=== PATIENT | female | born 1975 | race American Indian/Alaskan Native ===

== ENCOUNTER 2018-12-19 19:45 | Inpatient (IN) | payer SELFPAY ==
[2018-12-19] MEDS ORDERED: MECLIZINE 25 MG TAB PO ONE (20:28)
--- NOTE | 2018-12-19 20:31 | Emergency Department Report ---
ED General Adult HPI - General Chief complaint: Dizziness Stated complaint: DIZZINESS, HYPERTENSION Time Seen by Provider: 12/19/18 19:55 Source: patient Mode of arrival: Stretcher Limitations: No Limitations - History of Present Illness Initial comments: The patient presents to the emergency department with the chief complaint of dizziness 2 weeks. Patient states that the dizziness is present when she stands quickly or if she turns her head quickly. Patient also was this with a blood pressure that is 176/105. Patient states she was just released from prison and does not have her medications. Patient states that she takes labetalol and at that opinion for her hypertension but is unaware of the dosages. Patient denies chest pain, shortness of breath, headache, or abdominal pain. -: Gradual Severity scale (0 -10): 0 Improves with: none Worsens with: none Associated Symptoms: denies other symptoms Treatments Prior to Arrival: none - Related Data Allergies Allergy/AdvReac Type Severity Reaction Status Date / Time No Known Allergies Allergy Unverified 12/19/18 20:01 ED Review of Systems ROS: Stated complaint: DIZZINESS, HYPERTENSION Other details as noted in HPI Comment: All other systems reviewed and negative Constitutional: denies: chills, fever Eyes: denies: eye pain, eye discharge, vision change ENT: denies: ear pain, throat pain Respiratory: denies: cough, shortness of breath, wheezing Cardiovascular: denies: chest pain, palpitations Endocrine: no symptoms reported Gastrointestinal: denies: abdominal pain, nausea, diarrhea Genitourinary: denies: urgency, dysuria, discharge Musculoskeletal: denies: back pain, joint swelling, arthralgia Skin: denies: rash, lesions Neurological: vertigo. denies: headache, weakness, paresthesias Psychiatric: denies: anxiety, depression Hematological/Lymphatic: denies: easy bleeding, easy bruising ED Past Medical Hx - Past Medical History Previous Medical History?: Yes Hx Hypertension: Yes Hx CVA: Yes Hx Diabetes: Yes Hx Asthma: Yes - Surgical History Past Surgical History?: No - Social History Smoking Status: Never Smoker ED Physical Exam - General Limitations: No Limitations General appearance: alert, in no apparent distress - Head Head exam: Present: atraumatic, normocephalic - Eye Eye exam: Present: normal appearance, PERRL, EOMI - ENT ENT exam: Present: mucous membranes moist - Neck Neck exam: Present: normal inspection - Respiratory Respiratory exam: Present: normal lung sounds bilaterally. Absent: respiratory distress - Cardiovascular Cardiovascular Exam: Present: regular rate, normal rhythm. Absent: systolic murmur, diastolic murmur, rubs, gallop - GI/Abdominal GI/Abdominal exam: Present: soft, normal bowel sounds. Absent: distended, tenderness - Extremities Exam Extremities exam: Present: normal inspection - Back Exam Back exam: Present: normal inspection - Neurological Exam Neurological exam: Present: alert, oriented X3, CN II-XII intact, abnormal gait, other (FTN, HTS and RHM intact). Absent: motor sensory deficit - Psychiatric Psychiatric exam: Present: normal affect, normal mood - Skin Skin exam: Present: warm, dry, intact, normal color. Absent: rash ED Course Vital Signs 12/19/18 12/19/18 20:01 21:42 Temperature 98.6 F Pulse Rate 65 62 Respiratory 18 18 Rate Blood Pressure 176/105 Blood Pressure 183/97 [Right] O2 Sat by Pulse 99 99 Oximetry ED Medical Decision Making - Lab Data Result diagrams: 12/19/18 21:40 12/19/18 21:40 Lab Results 12/19/18 12/19/18 Range/Units 21:40 21:40 WBC 8.4 (4.5-11.0) K/mm3 RBC 4.42 (3.65-5.03) M/mm3 Hgb 13.0 (10.1-14.3) gm/dl Hct 38.0 (30.3-42.9) % MCV 86 (79-97) fl MCH 29 (28-32) pg MCHC 34 (30-34) % RDW 15.1 (13.2-15.2) % Plt Count 381 (140-440) K/mm3 Lymph % (Auto) 34.3 (13.4-35.0) % [place] % (Auto) 4.9 (0.0-7.3) % Eos % (Auto) 1.0 (0.0-4.3) % Baso % (Auto) 0.9 (0.0-1.8) % Lymph # 2.9 (1.2-5.4) K/mm3 [place] # 0.4 (0.0-0.8) K/mm3 Eos # 0.1 (0.0-0.4) K/mm3 Baso # 0.1 (0.0-0.1) K/mm3 Seg Neutrophils % 58.9 (40.0-70.0) % Seg Neutrophils # 5.0 (1.8-7.7) K/mm3 Sodium 141 (137-145) mmol/L Potassium 3.2 L (3.6-5.0) mmol/L Chloride 103.0 (98-107) mmol/L Carbon Dioxide 29 (22-30) mmol/L Anion Gap 12 mmol/L BUN 9 (7-17) mg/dL Creatinine 0.6 L (0.7-1.2) mg/dL Estimated GFR > 60 ml/min BUN/Creatinine Ratio 15 % Glucose 118 H (65-100) mg/dL Calcium 9.0 (8.4-10.2) mg/dL Critical care attestation.: If time is entered above; I have spent that time in minutes in the direct care of this critically ill patient, excluding procedure time. ED Disposition Clinical Impression: Ataxia, Dizziness Disposition: DC-01 TO HOME OR SELFCARE Is pt being admited?: No Does the pt Need Aspirin: No Condition: Fair
[2018-12-19 21:54] LABS: Basophils # (Auto) 0.1 K/mm3 (0.0-0.1); Basophils % (Auto) 0.9 % (0.0-1.8); Eosinophils # (Auto) 0.1 K/mm3 (0.0-0.4); Lymphocytes # (Auto) 2.9 K/mm3 (1.2-5.4); Lymphocytes % (Auto) 34.3 % (13.4-35.0); Mean Corpuscular HGB Conc 34 % (30-34); Mean Corpuscular Volume 86 fl (79-97); Monocytes # (Auto) 0.4 K/mm3 (0.0-0.8); Monocytes % (Auto) 4.9 % (0.0-7.3); Platelet Count 381 K/mm3 (140-440); Red Blood Count 4.42 M/mm3 (3.65-5.03); Red Cell Distribution Width 15.1 % (13.2-15.2)
--- NOTE | 2018-12-19 22:01 | Cat Scan Report ---
CT BRAIN: 12/19/2018 INDICATION / CLINICAL INFORMATION: dizzy. COMPARISON: None available. FINDINGS: BRAIN/INTRACRANIAL STRUCTURES: Unenhanced CT images of the brain were obtained. No previous studies a re available here for comparison. There is a 3.1 cm area of hypoattenuation/encephalomalacia present in the peripheral aspect of the le ft cerebellar hemisphere, most consistent with ischemic injury. I would consider this to be of indete rminate age. There is no evidence of associated hemorrhage. A small area of encephalomalacia is present in the high right frontal cortex There is subcortical periventricular hypoattenuation in the right frontal lobe, consistent with chron ic ischemic change. There is also evidence of chronic ischemic change in the left thalamus. Ventricles and sulci are slightly prominent in size for a patient of this age, consistent with mild c erebral atrophy. There is no evidence of hemorrhage. There are no abnormal extra-axial fluid collections. EXTRACRANIAL STRUCTURES: Unremarkable. IMPRESSION: 1. Left peripheral cerebellar encephalomalacia, consistent with ischemic injury. Consider this to be of indeterminate age. The lack of defined atrophic changes may indicate that this is a recent cerebel lar infarct. 2. Chronic ischemic changes in the left thalamus and right frontal white matter. High right frontal c ortical encephalomalacia is also present. 3. No evidence of hemorrhage. All CT scans at this location are performed using dose reduction to ALARA by means of automated expos ure control. Signer Name: Santiago Banuelos MD Signed: 12/19/2018 9:56 PM Workstation Name: [id number]
[2018-12-19 22:12] LABS: BUN/Creatinine Ratio 15; Blood Urea Nitrogen 9 mg/dL (7-17); Hemolysis Index 3
[2018-12-19] MEDS ORDERED: ASPIRIN 81 MG TAB CHEW PO ONE (22:55)
[2018-12-19] MEDS ORDERED: ASPIRIN 81 MG TAB CHEW ONE (22:56)
[2018-12-19] MEDS ORDERED: PROMETHAZINE 25 MG RECT SUPP PR PRN (23:12)
[2018-12-19] MEDS ORDERED: ONDANSETRON 4 MG/2 ML INJ IV PRN (23:12)
[2018-12-19] MEDS ORDERED: ACETAMINOPHEN 325 MG TAB PO PRN (23:12)
[2018-12-19] MEDS ORDERED: MAGNESIUM HYDROXIDE (MOM) ORAL LIQD UDC PO PRN (23:12)
[2018-12-19] MEDS ORDERED: METOCLOPRAMIDE 10 MG TAB PO PRN (23:12)
[2018-12-19] MEDS ORDERED: POTASSIUM CHLORIDE ER 20 MEQ TAB PO ONE (23:19)
--- NOTE | 2018-12-19 23:25 | History and Physical Report ---
History of Present Illness Date of examination: 12/19/18 Date of admission: 12/19/2018 Chief complaint: Dizziness History of present illness: 43-year-old -Marshallese female with history of CVA (2018), hypertension, asthma, diabetes who presents to [facility] ED with complaints of dizziness and ataxia for the past 2 weeks. Patient states that she was incarcerated for the past 8 months and was recently released 3 weeks ago. Since being released from long-term, patient has been off of her blood pressure and stroke medications. Approximately 2 weeks ago patient started experiencing dizziness which was worse after meal consumption. Patient states that baseline she has slight ataxia from previous CVA. However she has noticed that her is more altered than usual. Denies: CP, Headache, alteration in speech, visual disturbances, fever, cough, nausea, or vomiting Past History Past Medical History: diabetes, hypertension, stroke (2018), other (asthma) Past Surgical History: No surgical history Social history: lives with family (with sister), other (incarcerated for an 8 months released 3 weeks ago). denies: smoking Family history: no significant family history Medications and Allergies Allergies Allergy/AdvReac Type Severity Reaction Status Date / Time No Known Allergies Allergy Unverified 12/19/18 20:01 Home Medications Medication Instructions Recorded Confirmed Last Taken Type Labetalol [Labetalol 100mg TAB] 100 mg PO BID 12/19/18 12/19/18 Unknown History NIFEdipine [Procardia] 10 mg PO DAILY 12/19/18 12/19/18 Unknown History OLANzapine [ZyPREXA] 5 mg PO QDAY 12/19/18 12/19/18 Unknown History Active Meds: Active Medications Acetaminophen (Tylenol) 650 mg PO Q4H PRN PRN Reason: Pain, Mild (1-3) Aspirin (Aspirin) 325 mg PO QDAY JULIA Atorvastatin Calcium (Lipitor) 40 mg PO QHS JULIA Bisacodyl (Dulcolax) 10 mg PA QDAY PRN PRN Reason: Constipation Enoxaparin Sodium (Lovenox) 40 mg SUB-Q QDAY JULIA Labetalol HCl (Normodyne) 100 mg PO BID JULIA Magnesium Hydroxide (Milk Of Magnesia) 30 ml PO Q4H PRN PRN Reason: Constipation Metoclopramide HCl (Reglan) 10 mg PO Q6H PRN PRN Reason: Nausea And Vomiting Nifedipine (Procardia*For Tocolysis Only*) 10 mg PO DAILY [facility] Olanzapine (Zyprexa) 5 mg PO QDAY JULIA Ondansetron HCl (Zofran) 4 mg IV Q8H PRN PRN Reason: Nausea And Vomiting Potassium Chloride (K-Dur) 40 meq PO ONCE ONE Stop: 12/19/18 23:20 Promethazine HCl (Phenergan) 25 mg PA Q6H PRN PRN Reason: Nausea And Vomiting Sodium Chloride (Sodium Chloride Flush Syringe 10 Ml) 10 ml INJ PRN PRN PRN Reason: LINE FLUSH Review of Systems All systems: negative Neurological: ataxia, gait dysfunction (r/t previous stoke), other (dizziness) Exam - Physical Exam Narrative exam: Physical exam General appearance: Present: No acute distress, alert and oriented 3, well developed, pleasant, adult -Marshallese female - EENT Eyes: Present: PERRL, EOM intact, ENT: hearing intact, normal dentition - Neck Neck: Present: supple, normal ROM - Respiratory Respiratory effort: Non-labored Respiratory: CTA - Cardiovascular Heart rate: 65 (bpm) Rhythm: SR Heart Sounds: Present: S1, S2 - Extremities Extremities: no ischemia, pulses intact, - Peripheral Assessment Peripheral Pulses: within normal limits - Abdominal General gastrointestinal: soft, non-tender, normal bowel sounds - Integumentary Integumentary: Present: warm, dry, - Musculoskeletal Musculoskeletal: Able to move all extremities, 5/5 strength in extremities x4, -Neurological Neurological: CN II-XII grossly intact - Psychiatric Psychiatric: cooperative - Constitutional Vitals: Temp Pulse Resp BP Pulse Ox 98.6 F 75 18 159/89 100 12/19/18 20:01 12/19/18 23:23 12/19/18 23:23 12/19/18 23:23 12/19/18 23:23 Results - Labs CBC & Chem 7: 12/19/18 21:40 12/19/18 21:40 Labs: Laboratory Last Values WBC 8.4 K/mm3 (4.5-11.0) 12/19/18 21:40 RBC 4.42 M/mm3 (3.65-5.03) 12/19/18 21:40 Hgb 13.0 gm/dl (10.1-14.3) 12/19/18 21:40 Hct 38.0 % (30.3-42.9) 12/19/18 21:40 MCV 86 fl (79-97) 12/19/18 21:40 MCH 29 pg (28-32) 12/19/18 21:40 MCHC 34 % (30-34) 12/19/18 21:40 RDW 15.1 % (13.2-15.2) 12/19/18 21:40 Plt Count 381 K/mm3 (140-440) 12/19/18 21:40 Lymph % (Auto) 34.3 % (13.4-35.0) 12/19/18 21:40 [place] % (Auto) 4.9 % (0.0-7.3) 12/19/18 21:40 Eos % (Auto) 1.0 % (0.0-4.3) 12/19/18 21:40 Baso % (Auto) 0.9 % (0.0-1.8) 12/19/18 21:40 Lymph # 2.9 K/mm3 (1.2-5.4) 12/19/18 21:40 [place] # 0.4 K/mm3 (0.0-0.8) 12/19/18 21:40 Eos # 0.1 K/mm3 (0.0-0.4) 12/19/18 21:40 Baso # 0.1 K/mm3 (0.0-0.1) 12/19/18 21:40 Seg Neutrophils % 58.9 % (40.0-70.0) 12/19/18 21:40 Seg Neutrophils # 5.0 K/mm3 (1.8-7.7) 12/19/18 21:40 Sodium 141 mmol/L (137-145) 12/19/18 21:40 Potassium 3.2 mmol/L (3.6-5.0) L 12/19/18 21:40 Chloride 103.0 mmol/L (98-107) 12/19/18 21:40 Carbon Dioxide 29 mmol/L (22-30) 12/19/18 21:40 Anion Gap 12 mmol/L 12/19/18 21:40 BUN 9 mg/dL (7-17) 12/19/18 21:40 Creatinine 0.6 mg/dL (0.7-1.2) L 12/19/18 21:40 Estimated GFR > 60 ml/min 12/19/18 21:40 BUN/Creatinine Ratio 15 % 12/19/18 21:40 Glucose 118 mg/dL (65-100) H 12/19/18 21:40 Calcium 9.0 mg/dL (8.4-10.2) 12/19/18 21:40 - Imaging and Cardiology Imaging and Cardiology: CT Head: FINDINGS: BRAIN/INTRACRANIAL STRUCTURES: Unenhanced CT images of the brain were obtained. No previous studies are available here for comparison. There is a 3.1 cm area of hypoattenuation/encephalomalacia present in the peripheral aspect of the left cerebellar hemisphere, most consistent with ischemic injury. I would consider this to be of indeterminate age. There is no evidence of associated hemorrhage. A small area of encephalomalacia is present in the high right frontal cortex There is subcortical periventricular hypoattenuation in the right frontal lobe, consistent with chronic ischemic change. There is also evidence of chronic ischemic change in the left thalamus. Ventricles and sulci are slightly prominent in size for a patient of this age, consistent with mild cerebral atrophy. There is no evidence of hemorrhage. There are no abnormal extra-axial fluid luis ections. EXTRACRANIAL STRUCTURES: Unremarkable. IMPRESSION: 1. Left peripheral cerebellar encephalomalacia, consistent with ischemic injury. Consider this to be of indeterminate age. The lack of defined atrophic changes may indicate that this is a recent cerebellar infarct. 2. Chronic ischemic changes in the left thalamus and right frontal white matter. High right frontal cortical encephalomalacia is also present. 3. No evidence of hemorrhage. Assessment and Plan Assessment and plan: 43-year-old -M[place]ese female with history of CVA (2018), hypertension, asthma, diabetes who presents to [facility] ED with complaints of dizziness and ataxia for the past 2 weeks. At the time of my examination patient is sitting up in stretcher awake, alert and oriented 3. Speech is clear and she is able to maintain conversation. Hypertensive urgency -BP on admission 176/105 -Hx Hypertension -Continue to monitor BP -Has been off of antihypertensive meds for the past 3 weeks since being released from long-term -Resume home antihypertensive meds to optimize BP -IV antihypertensive when necessary R/O CVA -Suspicion of TIA -Hx CVA (2018) with right sided residual deficits -Pt c/o progressing worsening dizziness for the past 2 weeks -CT Head negative for hemorrhage, but did reveal: Left peripheral cerebellar encephalomalacia, consistent with ischemic injury. Consider this to be of indeterminate age. The lack of defined atrophic changes may indicate that this is a recent cerebellar infarct. Chronic ischemic changes in the left thalamus and right frontal white matter. High right frontal cortical en cephalomalacia is also present. -Pt not a candidate for TPA -MRI/MRA, Carotid Doppler, and Echo pending -Neurology consulted -Neuro Checks -PT/OT eval pending -Lipid panel pending -Start ASA and statin Hypokalemia -3.2 on admission -Repleted -Continue to monitor electrolytes, replete prn DM -HgbA1c pending -SSI coverage prn DVT PPX -on Lovenox Advance Directives: No VTE prophylaxis?: Chemical Plan of care discussed with patient/family: Yes
[2018-12-19] MEDS ORDERED: hydrALAZINE 20 MG/1 ML INJ IV PRN (23:45)
--- NOTE | 2018-12-19 23:45 | Event Note ---
43-year-old woman with history of stroke 1 year ago. The patient had been in [place] [facility] she was receiving her medications which included blood pressure medications, aspirin etc. She was recently released 2 weeks ago. And had no access to medications or prescriptions, therefore has been off all her medications since then. She typically takes labetalol and nifedipine for blood pressure management, she was also on a statin and aspirin. She has been complaining of dizziness and feeling that she is falling to her left side when she stands or tries to walk CT HEAD 1. Left peripheral cerebellar encephalomalacia, consistent with ischemic injury. Consider this to be of indeterminate age. The lack of defined atrophic changes may indicate that this is a recentcerebellar infarct. 2. Chronic ischemic changes in the left thalamus and right frontal white matter. High right frontalcortical encephalomalacia is also present. 3. No evidence of hemorrhage. Physical exam, patient has ataxic gait, leaning/falling to the left Hypertensive urgency; optimize blood pressure medications Age-indeterminate cerebellar stroke. It is unclear if this is a new or old stroke. However the symptoms have been going on for over 2 weeks, therefore the patient does not meet criteria for TPA or any acute management. Will need to obtain MRI brain MRA head, carotid Dopplers echo, lipid panel, neurology consult, PT consult. Based on this findings we will determine secondary prevention. -Aspirin, statin DVT prophylaxis; Lovenox
[2018-12-20] MEDS ORDERED: DEXTROSE 50% IN WATER (25GM) 50 ML SYRINGE IV PRN (00:40)
[2018-12-20 06:06] LABS: Chol/HDL Ratio 2.92 %
[2018-12-20] MEDS: INSULIN LISPRO 100 UNIT/ML SUB-Q SCH ×4 (07:58→22:19)
[2018-12-20] MEDS ORDERED: NIFEdipine*For Tocolysis only* 10 MG CAPSULE PO SCH (10:00)
[2018-12-20] MEDS ORDERED: ASPIRIN 325 MG TAB PO SCH (10:00)
--- NOTE | 2018-12-20 10:39 | Vascular Lab Report ---
BILATERAL CAROTID DOPPLER ULTRASOUND INDICATION : stroke TECHNIQUE: Grayscale and color Doppler imaging performed through the neck. COMPARISON: None FINDINGS: Right: There is minimal heterogeneous plaque in the carotid bulb. Peak systolic velocity in the CCA is 86 cm/s with end-diastolic velocity of 82 cm/s. Peak systolic velocity in the proximal ICA is 105 cm/s with end-diastolic velocity of 32 cm/s. ICA to CCA ratio is less than 2. There is antegrade fl ow in the ECA and the vertebral artery. Left: There is mild heterogeneous irregular plaque in the carotid bulb. Peak systolic velocity in the CCA is 98 cm/s with end-diastolic velocity of 31 cm/s. Peak systolic velocity in the proximal ICA is 101 cm/s with end-diastolic velocity of 46 cm/s. ICA to CCA ratio is less than 2. There is antegrade flow in the ECA and the vertebral artery. IMPRESSION: No hemodynamically significant stenosis by NASCET criteria. There is less than 50% lumina l narrowing throughout both carotid systems. Minimal to mild atherosclerotic disease at both carotid bifurcations. Signer Name: Rashel Christine Jr, MD Signed: 12/20/2018 10:34 AM Workstation Name: [id number]
[2018-12-20] MEDS: ASPIRIN EC 81 MG TAB PO SCH (10:57)
[2018-12-20] MEDS: NIFEdipine XL 30 MG TAB PO SCH (10:57)
[2018-12-20] MEDS: ENOXAPARIN 40 MG/0.4 ML INJ SUB-Q SCH (10:57)
[2018-12-20] MEDS ORDERED: FLU VACC QUAD 2019-20 (3 YR UP)/PF 60 MCG/0.5 ML SYRINGE IM ONE (12:00)
--- NOTE | 2018-12-20 12:14 | Progress Note ---
Assessment and Plan Assessment and plan: --Hypertensive urgency; Closely monitor blood pressures Permissivet hypertension per stroke protocol --Possible CVA; Aspirin and statin PT and OT rehabilitation Neurology evaluation Neuro workup.: MRI; 3 or 4 small foci of subacute ischemia along the margin of the previous chronic infarct multiple chronic infarcts noted CT head without contrast; left peripheral cerebellar encephalomalacia consistent with ischemic injury MRA.; No acute abnormality Carotid Doppler; no hemodynamically significant stenosis Less than 50% stenosis; neck; atherosclerotic plaque in the right carotid bifurcation No hemodynamically significant stenosis Abnormal thyroid gland/mass --Hypokalemia; replace per protocol and monitor levels --Type 2 diabetes mellitus; Accu-Chek sliding scale coverage and ADA diet --Dyslipidemia; statin --DVT prophylaxis and Lovenox Physical therapy and occupational therapy rehabilitation Monitor closely and adjust the management as needed; Follow neurology evaluation and recommendations Plan of care With the patient and her nurse History Interval history: Patient seen and examined medical records reviewed Patient was admitted with acute CVA not a candidate for TPA Neuro workup is in progress Patient feels slightly better Vital signs reviewed Hospitalist Physical - Constitutional Vitals: Temp Pulse Resp BP Pulse Ox 97.5 F L 82 18 145/81 99 12/20/18 07:21 12/20/18 09:59 12/20/18 07:21 12/20/18 07:21 12/20/18 05:48 General appearance: Present: no acute distress, well-nourished - EENT Eyes: Present: PERRL, EOM intact - Neck Neck: Present: supple, normal ROM - Respiratory Respiratory effort: normal Respiratory: bilateral: diminished, negative: rales, rhonchi, wheezing - Cardiovascular Rhythm: regular Heart Sounds: Present: S1 & S2 - Extremities Extremities: no ischemia, No edema - Abdominal General gastrointestinal: soft, non-tender, non-distended, normal bowel sounds - Integumentary Integumentary: Present: clear, warm - Psychiatric Psychiatric: appropriate mood/affect, cooperative - Neurologic Neurologic: moves all extremities, other (residual weakness) Results - Labs CBC & Chem 7: 12/19/18 21:40 12/19/18 21:40 Labs: Laboratory Last Values WBC 8.4 K/mm3 (4.5-11.0) 12/19/18 21:40 RBC 4.42 M/mm3 (3.65-5.03) 12/19/18 21:40 Hgb 13.0 gm/dl (10.1-14.3) 12/19/18 21:40 Hct 38.0 % (30.3-42.9) 12/19/18 21:40 MCV 86 fl (79-97) 12/19/18 21:40 MCH 29 pg (28-32) 12/19/18 21:40 MCHC 34 % (30-34) 12/19/18 21:40 RDW 15.1 % (13.2-15.2) 12/19/18 21:40 Plt Count 381 K/mm3 (140-440) 12/19/18 21:40 Lymph % (Auto) 34.3 % (13.4-35.0) 12/19/18 21:40 [place] % (Auto) 4.9 % (0.0-7.3) 12/19/18 21:40 Eos % (Auto) 1.0 % (0.0-4.3) 12/19/18 21:40 Baso % (Auto) 0.9 % (0.0-1.8) 12/19/18 21:40 Lymph # 2.9 K/mm3 (1.2-5.4) 12/19/18 21:40 [place] # 0.4 K/mm3 (0.0-0.8) 12/19/18 21:40 Eos # 0.1 K/mm3 (0.0-0.4) 12/19/18 21:40 Baso # 0.1 K/mm3 (0.0-0.1) 12/19/18 21:40 Seg Neutrophils % 58.9 % (40.0-70.0) 12/19/18 21:40 Seg Neutrophils # 5.0 K/mm3 (1.8-7.7) 12/19/18 21:40 Sodium 141 mmol/L (137-145) 12/19/18 21:40 Potassium 3.2 mmol/L (3.6-5.0) L 12/19/18 21:40 Chloride 103.0 mmol/L (98-107) 12/19/18 21:40 Carbon Dioxide 29 mmol/L (22-30) 12/19/18 21:40 Anion Gap 12 mmol/L 12/19/18 21:40 BUN 9 mg/dL (7-17) 12/19/18 21:40 Creatinine 0.6 mg/dL (0.7-1.2) L 12/19/18 21:40 Estimated GFR > 60 ml/min 12/19/18 21:40 BUN/Creatinine Ratio 15 % 12/19/18 21:40 Glucose 118 mg/dL (65-100) H 12/19/18 21:40 POC Glucose 85 (70-105) 12/20/18 07:42 Hemoglobin A1c 5.3 % (4-6) 12/20/18 04:57 Calcium 9.0 mg/dL (8.4-10.2) 12/19/18 21:40 Triglycerides 124 mg/dL (2-149) 12/20/18 04:57 Cholesterol 161 mg/dL (50-199) 12/20/18 04:57 LDL Cholesterol Direct 92 mg/dL (50-130) 12/20/18 04:57 HDL Cholesterol 55 mg/dL (40-59) 12/20/18 04:57 Cholesterol/HDL Ratio 2.92 % 12/20/18 04:57 Active Medications - Current Medications Current Medications: Generic Name Dose Route Start Last Admin Trade Name Freq PRN Reason Stop Dose Admin Acetaminophen 650 mg 12/19/18 23:12 Tylenol PO Q4H PRN Pain, Mild (1-3) Aspirin 81 mg 12/20/18 10:00 12/20/18 10:57 Halfprin Ec PO 81 mg QDAY JULIA Administration Atorvastatin Calcium 40 mg 12/20/18 22:00 Lipitor PO QHS JULIA Bisacodyl 10 mg 12/19/18 23:12 Dulcolax [place] QDAY PRN Constipation Dextrose 50 ml 12/20/18 00:40 D50w (25gm) Syringe IV PRN PRN Hypoglycemia Enoxaparin Sodium 40 mg 12/20/18 10:00 12/20/18 10:57 Lovenox SUB-Q 40 mg QDAY JULIA Administration Hydralazine HCl 10 mg 12/19/18 23:45 12/20/18 01:31 Apresoline IV 10 mg Q4H PRN Administration BP >160/100 Insulin Human Lispro 0 unit 12/20/18 07:30 12/20/18 12:02 Humalog SUB-Q Not Given ACHS [facility] Protocol Labetalol HCl 100 mg 12/20/18 10:00 12/20/18 10:57 Normodyne PO 100 mg BID JULIA Administration Magnesium Hydroxide 30 ml 12/19/18 23:12 Milk Of Magnesia PO Q4H PRN Constipation Metoclopramide HCl 10 mg 12/19/18 23:12 Reglan PO Q6H PRN Nausea And Vomiting Nifedipine 30 mg 12/20/18 08:00 12/20/18 10:57 Procardia Xl PO 30 mg QDAY@0800 JULIA Administration Olanzapine 5 mg 12/20/18 10:00 12/20/18 11:59 Zyprexa PO 5 mg QDAY JULIA Administration Ondansetron HCl 4 mg 12/19/18 23:12 Zofran IV Q8H PRN Nausea And Vomiting Promethazine HCl 25 mg 12/19/18 23:12 Phenergan [place] Q6H PRN Nausea And Vomiting Sodium Chloride 10 ml 12/19/18 23:12 Sodium Chloride Flush Syringe 10 Ml IV PRN PRN LINE FLUSH Nutrition/Malnutrition Assess - Dietary Evaluation Nutrition/Malnutrition Findings: Nutrition Notes Start: 12/20/18 11:48 Freq: Status: Active Protocol: Document 12/20/18 11:49 PS (Rec: 12/20/18 11:54 PS [id number]) Co-Sign 12/20/18 11:49 LM Nutrition Notes 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 was not in room during both visits. Follow up for pre -diabetes education and nutrition assessment. Pt. labs did not indicate DM. Nutrition Intervention Follow-Up By: 12/21/18 Additional Comments Follow up for nutrition assessment and pre-diabetes education
--- NOTE | 2018-12-20 12:31 | Magnetic Resonance Report ---
MRI BRAIN WITHOUT CONTRAST INDICATION / CLINICAL INFORMATION: stroke. TECHNIQUE: Multisequence, multiplanar images were obtained. COMPARISON: CT head dated 12/19/2018 FINDINGS: CEREBRAL HEMISPHERES: Mild nonspecific chronic white matter changes are identified. Chronic focal inf arct in the right callaway radiata measures 1 cm. Chronic cortical infarct in the right parietal lobe m easures up to 2.4 cm in greatest dimension. Small cortical infarcts are also identified in both occip ital lobes, left greater than right. There is no evidence for acute ischemia, hemorrhage, mass or ext ra-axial fluid collection in the supratentorial compartment. CEREBELLAR HEMISPHERES: Chronic infarct measuring up to 3.9 x 2.1 cm in axial plane is identified in the inferior left cerebellar hemisphere. There are 3 or 4 small foci of diffusion restriction along t he medial margin of this chronic infarct measuring up to 5 mm which is consistent with acute to subac gely priya-infarct ischemia. This is best demonstrated on diffusion images 5-9. There is decreased sign al in these areas on the ADC map. No additional areas of diffusion restriction are identified. The ri ght cerebellar hemisphere is unremarkable. VENTRICLES: Normal in size and configuration for age. VISUALIZED ORBITS: No significant abnormality. VISUALIZED PARANASAL SINUSES: No significant abnormality. ADDITIONAL FINDINGS: None. IMPRESSION: 3 or 4 small foci of subacute ischemia are identified along the margin of a previous chronic left cer ebellar infarct. Please see above. Chronic infarcts are identified in the left cerebellum, right callaway radiata, right parietal cortex a nd bilateral occipital cortices. Mild nonspecific chronic white matter changes. Signer Name: Rashel Christine Jr, MD Signed: 12/20/2018 12:27 PM Workstation Name: [id number]
--- NOTE | 2018-12-20 12:33 | Magnetic Resonance Report ---
MRA HEAD WITHOUT CONTRAST HISTORY: Stroke, weakness COMPARISON: MRI brain performed the same day TECHNIQUE: Routine MRA of the head is performed. 3-D/MIP reformats postprocessed. CONTRAST: None. FINDINGS: Intracranial vertebral arteries: No significant abnormality. Basilar artery: No significant abnormality. Posterior cerebral arteries: No significant abnormality. Intracranial internal carotid arteries: No significant abnormality. Anterior cerebral arteries: No significant abnormality. Middle cerebral arteries: No significant abnormality. Additional findings: None. IMPRESSION: 1. No significant abnormality. Signer Name: Rashel Christine Jr, MD Signed: 12/20/2018 12:28 PM Workstation Name: [id number]
[2018-12-20] MEDS: cephALEXin 500 MG CAP PO SCH ×2 (13:21→22:22)
--- NOTE | 2018-12-20 18:10 | Cat Scan Report ---
CTA neck without and with intravenous contrast material CLINICAL HISTORY: MAIN: stroke cva symptoms omni 350/100ml TECHNIQUE: Following acquisition of a timing bolus 0.625 mm thick contiguous axial scans were obtained from aort ic arch to the skull base during rapid bolus intravenous contrast infusion. In addition to evaluation of axial source images multiplanar reconstructions were produced and reviewed for this report. 3 orlin ne MIP reconstructions were produced. FINDINGS: No abnormalities are seen at the origins of the great vessels. Visualized portions of the thoracic ao rta have an unremarkable appearance. The brachiocephalic artery, right subclavian artery and left sub clavian artery all have an unremarkable appearance. Right carotid artery: No abnormalities are seen along the course of the right common carotid artery. Evaluation of the right carotid bifurcation reveals calcified atherosclerotic plaque with no associat ed stenosis. Cervical segments of the right internal carotid artery have a normal appearance. Left carotid artery: Left common carotid artery has a normal appearance. Evaluation of the left carot id bifurcation reveals no abnormality. Cervical segments of the left internal carotid artery have an unremarkable appearance. Left vertebral artery is dominant both vertebral arteries contribute to the basilar artery origin. No abnormalities are seen along the course the basilar artery. The degree of stenosis, if any, is determined utilizing NASCET like criteria. In this case there is no indication of hemodynamically significant stenosis. The thyroid gland is abnormal. There is a heterogeneous 2.2 x 2.2 x 3.1 cm mass in the mid and lower pole of the right lobe of the thyroid gland. Further evaluation with dedicated thyroid ultrasound is advised. Smaller nodules or cysts are identified in the left lobe of the thyroid gland. Evaluation of the nonvascular soft tissue structures reveal no additional abnormality. There is no in dication of cervical lymphadenopathy. No abnormalities are seen along the course of the airway. Visua lized portions of the parotid glands and the submandibular salivary glands have a normal appearance. Evaluation of the lung apices reveals no evidence of lung nodule or infiltrate. Evaluation of the cer vical spine revealed no significant abnormalities. IMPRESSION: 1. Mild atherosclerotic plaque at the right carotid bifurcation. 2. No indication of hemodynamically significant stenosis at the carotid bifurcations or elsewhere. 3. Abnormal thyroid gland with dominant mass in the mid and lower pole the right lobe of the thyroid gland. Further evaluation with thyroid ultrasound is advised. Incidental thyroid nodule measuring 2.2 x 2.2 x 3.1 cm located in lobe of the thyroid gland. See khalida starr for follow-up recommendation. Nonpalpable nodules detected on US or other anatomic imaging studies are termed incidentally discover ed nodules or incidentalomas. Nonpalpable nodules have the same risk of malignancy as palpable nodule s with the same size. Generally, only nodules >1 cm should be evaluated, since they have a greater po tential to be clinically significant cancers. (JOSE, 2009). Follow up for incidental thyroid nodules <1 cm is not recommended. In patients <35 years with an incidental thyroid nodule detected on CT, MRI, or extrathyroidal ultras ound, dedicated thyroid ultrasound is recommended if the nodule is 1 cm, has no suspicious imaging fe atures, and if the patient has normal life expectancy. Contrast dose report: Omnipaque 350: 100 ml, administered intravenously All CT examinations performed at this facility utilize modulated dose reduction, iterative reconstruc tion or weight-based dosing, as appropriate, to obtain a radiation dose which is as low as can reason ably be achieved. Signer Name: Cruzito Sotelo MD Signed: 12/20/2018 6:06 PM Workstation Name: [id number]
--- NOTE | 2018-12-20 19:15 | Consultation ---
History of Present Illness Consult date: 12/20/18 Reason for Consult: Stroke Chief complaint: Imbalanced gait, dizziness History of present illness: Patient is a 43-year-old woman with a history of stroke with residual right- sided weakness, hypertension, asthma. Patient was released from care home approximately 3 weeks ago. She states that in care home she was getting her usual medications including aspirin and antihypertensive medications, however after being released, she was unable to get any of her medications. She had onset of increased dizziness and imbalance gait proximally 2 weeks ago. Patient presented to the hospital yesterday, as her symptoms have persisted. Past History Past Medical History: hypertension, stroke (2018), other (history of stroke with residual right-sided weakness, hypertension, asthma) Past Surgical History: No surgical history Social history: no significant social history, lives with family (with sister), other (incarcerated for an 8 months released 3 weeks ago). denies: smoking Family history: no significant family history Medications and Allergies Allergies Allergy/AdvReac Type Severity Reaction Status Date / Time No Known Allergies Allergy Unverified 12/19/18 20:01 Home Medications Medication Instructions Recorded Confirmed Last Taken Type Labetalol [Labetalol 100mg TAB] 100 mg PO BID 12/19/18 12/19/18 Unknown History NIFEdipine [Procardia] 10 mg PO DAILY 12/19/18 12/19/18 Unknown History OLANzapine [ZyPREXA] 5 mg PO QDAY 12/19/18 12/19/18 Unknown History Active Meds: Active Medications Acetaminophen (Tylenol) 650 mg PO Q4H PRN PRN Reason: Pain, Mild (1-3) Aspirin (Halfprin Ec) 81 mg PO QDAY [facility] Last Admin: 12/20/18 10:57 Dose: 81 mg Documented by: Atorvastatin Calcium (Lipitor) 40 mg PO QHS JULIA Bisacodyl (Dulcolax) 10 mg [place] QDAY PRN PRN Reason: Constipation Cephalexin (Keflex) 500 mg PO Q8H [facility] Last Admin: 12/20/18 13:21 Dose: 500 mg Documented by: Dextrose (D50w (25gm) Syringe) 50 ml IV PRN PRN PRN Reason: Hypoglycemia Enoxaparin Sodium (Lovenox) 40 mg SUB-Q QDAY [facility] Last Admin: 12/20/18 10:57 Dose: 40 mg Documented by: Hydralazine HCl (Apresoline) 10 mg IV Q4H PRN PRN Reason: BP >160/100 Last Admin: 12/20/18 01:31 Dose: 10 mg Documented by: Insulin Human Lispro (Humalog) 0 unit SUB-Q ACHS [facility]; Protocol Last Admin: 12/20/18 17:09 Dose: Not Given Documented by: Labetalol HCl (Normodyne) 100 mg PO BID [facility] Last Admin: 12/20/18 10:57 Dose: 100 mg Documented by: Magnesium Hydroxide (Milk Of Magnesia) 30 ml PO Q4H PRN PRN Reason: Constipation Metoclopramide HCl (Reglan) 10 mg PO Q6H PRN PRN Reason: Nausea And Vomiting Nifedipine (Procardia Xl) 30 mg PO QDAY@0800 [facility] Last Admin: 12/20/18 10:57 Dose: 30 mg Documented by: Olanzapine (Zyprexa) 5 mg PO QDAY [facility] Last Admin: 12/20/18 11:59 Dose: 5 mg Documented by: Ondansetron HCl (Zofran) 4 mg IV Q8H PRN PRN Reason: Nausea And Vomiting Promethazine HCl (Phenergan) 25 mg [place] Q6H PRN PRN Reason: Nausea And Vomiting Sodium Chloride (Sodium Chloride Flush Syringe 10 Ml) 10 ml IV PRN PRN PRN Reason: LINE FLUSH Review of Systems All systems: negative Neurological: vertigo, balance difficulties Physical Examination - Vital Signs Vital Signs: Vital Signs Pulse Resp Pulse Ox 68 14 99 12/19/18 19:58 12/19/18 19:58 12/19/18 19:58 - Physical Exam Narrative exam: Patient is alert, awake, oriented 4, follows complex commands. Pupils equal, round, reactive to light, visual wiggins full, no facial weakness noted, bilaterally intact to light touch, tongue midline. 5/5 strength noted in all extremities. Bilaterally intact to light touch. 2+ reflexes throughout. Noted to have mild dysmetria on right upper and lower extremity on [id number] and [id number], no dysmetria noted on left upper and lower extremity. No dysarthria or aphasia noted. - Constitutional General appearance: comfortable - EENT EENT: Present: ATNC, PERRL, mucous membranes moist, hearing intact, vision intact - Respiratory Respiratory: Present: lungs clear, normal breath sounds - Cardiovascular Cardiovascular: Present: regular rate, normal S1, normal S2 Extremities: Present: no clubbing, cyanosis, no inflammation - Gastrointestinal Gastrointestinal: Present: normoactive bowel sounds, soft, non-tender - Integumentary Integumentary: Present: normal - Musculoskeletal Musculoskeletal: Present: no fluid collection, no pain - Psychiatric Psychiatric: Present: mood/affect appropriate - Level of Consciousness 1a. Level of Consciousness: alert/keenly responsive - LOC Questions 1b. LOC Questions: answers both correctly - LOC Command 1c. LOC Commands: performs tasks correctly - Best Gaze 2. Best Gaze: normal - Visual 3. Visual: no visual loss - Facial Palsy 4. Facial Palsy: normal symmetrical movement - Motor Arm 5a. Motor Arm Left: no drift 5b. Motor Arm Right: no drift - Motor Leg 6a. Motor Leg Left: no drift 6b. Motor Leg Right: no drift - Limb Ataxia 7. Limb Ataxia: present 2 limbs - Sensory 8. Sensory: normal - Best Language 9. Best Language: no aphasia - Dysarthria 10. Dysarthria: normal - Extinction and Inattention 11. Extinction/Inattention: no abnormality - Scoring Total Score: 2 Stroke Severity: Minor Stroke Results - Laboratory Findings CBC and BMP: 12/19/18 21:40 12/19/18 21:40 Abnormal Lab Findings: Abnormal Labs 12/19/18 12/20/18 12/20/18 21:40 12:06 17:17 Potassium 3.2 L Creatinine 0.6 L Glucose 118 H POC Glucose 130 H 120 H Assessment and Plan Patient is a 43-year-old woman with a history of stroke with residual right- sided weakness, hypertension, asthma, who presents with a two-week history of increased imbalance gait and dizziness. According patient's clinical findings, she's had an acute ischemic stroke in the left cerebellar hemisphere, as is noted on MRI. Plan: 1. Stroke: - MRI brain showed Lt. cerebellar acute/subacute infarcts - Etiology is cyrptogenic - CTA neck: mild stenosis in left vertebral artery, otherwise no significant stenosis noted. - MRA head: No significant stenosis - Echo pending - Recommend dual antiplatelet therapy with both ASA 81mg daily and Plavix 75mg daily for 90 days, after which Plavix can be stopped. - LDL 92. - Cont. atorvastatin. Goal LDL <70. - HbA1C 5.3 - PT/OT/ST - DVT Ppx: recommend lovenox - If echo does not show any significant findings, will recommend long-term cardiac monitoring with either 30-day MCOT of ILR, which can be done as outpatient, as stroke appears to be cyrptogenic at this time. 2. Hypertension: - Recommend BP target of normotension, as it has been >48 hours since symptom onset. - Will continue to monitor neurologic status Thank you for allowing me to take part in the care of this patient. Aguilar Davidson MD Neurology
[2018-12-21 06:15] LABS: BUN/Creatinine Ratio 17; Blood Urea Nitrogen 12 mg/dL (7-17); Calcium 8.7 mg/dL (8.4-10.2); Hemolysis Index 5
--- NOTE | 2018-12-21 07:32 | Progress Note ---
Assessment and Plan Assessment and plan: --Acute Cerebellar stroke: Aspirin and statin PT and OT rehabilitation Neurology evaluation Neuro workup.: MRI; 3 or 4 small foci of subacute ischemia along the margin of the previous chronic infarct multiple chronic infarcts noted CT head without contrast; left peripheral cerebellar encephalomalacia consistent with ischemic injury MRA.; No acute abnormality Carotid Doppler; no hemodynamically significant stenosis Less than 50% stenosis; neck; atherosclerotic plaque in the right carotid bifurcation No hemodynamically significant stenosis Abnormal thyroid gland/mass ECHO : pending report --Hypokalemia; replace per protocol and monitor levels --Hypertensive urgency; Closely monitor blood pressures Permissivet hypertension per stroke protocol --Type 2 diabetes mellitus; Accu-Chek sliding scale coverage and ADA diet --Dyslipidemia; statin --Small abscess in the left axilla; Keflex and supportive care Surgical consult if needed --DVT prophylaxis and Lovenox Physical therapy and occupational therapy rehabilitation Monitor closely and adjust the management as needed; Follow neurology evaluation and recommendations Plan of care With the patient and her nurse History Interval history: Patient seen and examined medical severe Patient feels slightly better pneumonia complaints Vital signs reviewed Hospitalist Physical - Constitutional Vitals: Temp Pulse Resp BP Pulse Ox 98.0 F 81 18 129/85 96 12/21/18 04:01 12/21/18 04:00 12/21/18 04:00 12/21/18 04:00 12/21/18 04:00 General appearance: Present: no acute distress, well-nourished - EENT Eyes: Present: PERRL, EOM intact - Neck Neck: Present: supple, normal ROM - Respiratory Respiratory effort: normal Respiratory: bilateral: diminished, negative: rales, rhonchi, wheezing - Cardiovascular Rhythm: regular Heart Sounds: Present: S1 & S2 - Extremities Extremities: no ischemia, No edema - Abdominal General gastrointestinal: soft, non-tender, non-distended, normal bowel sounds - Integumentary Integumentary: Present: clear, warm - Psychiatric Psychiatric: appropriate mood/affect, cooperative - Neurologic Neurologic: CNII-XII intact, moves all extremities Results - Labs CBC & Chem 7: 12/19/18 21:40 12/21/18 04:40 Labs: Laboratory Last Values WBC 8.4 K/mm3 (4.5-11.0) 12/19/18 21:40 RBC 4.42 M/mm3 (3.65-5.03) 12/19/18 21:40 Hgb 13.0 gm/dl (10.1-14.3) 12/19/18 21:40 Hct 38.0 % (30.3-42.9) 12/19/18 21:40 MCV 86 fl (79-97) 12/19/18 21:40 MCH 29 pg (28-32) 12/19/18 21:40 MCHC 34 % (30-34) 12/19/18 21:40 RDW 15.1 % (13.2-15.2) 12/19/18 21:40 Plt Count 381 K/mm3 (140-440) 12/19/18 21:40 Lymph % (Auto) 34.3 % (13.4-35.0) 12/19/18 21:40 [place] % (Auto) 4.9 % (0.0-7.3) 12/19/18 21:40 Eos % (Auto) 1.0 % (0.0-4.3) 12/19/18 21:40 Baso % (Auto) 0.9 % (0.0-1.8) 12/19/18 21:40 Lymph # 2.9 K/mm3 (1.2-5.4) 12/19/18 21:40 [place] # 0.4 K/mm3 (0.0-0.8) 12/19/18 21:40 Eos # 0.1 K/mm3 (0.0-0.4) 12/19/18 21:40 Baso # 0.1 K/mm3 (0.0-0.1) 12/19/18 21:40 Seg Neutrophils % 58.9 % (40.0-70.0) 12/19/18 21:40 Seg Neutrophils # 5.0 K/mm3 (1.8-7.7) 12/19/18 21:40 Sodium 141 mmol/L (137-145) 12/21/18 04:40 Potassium 3.1 mmol/L (3.6-5.0) L 12/21/18 04:40 Chloride 105.6 mmol/L (98-107) 12/21/18 04:40 Carbon Dioxide 25 mmol/L (22-30) 12/21/18 04:40 Anion Gap 14 mmol/L 12/21/18 04:40 BUN 12 mg/dL (7-17) 12/21/18 04:40 Creatinine 0.7 mg/dL (0.7-1.2) 12/21/18 04:40 Estimated GFR > 60 ml/min 12/21/18 04:40 BUN/Creatinine Ratio 17 % 12/21/18 04:40 Glucose 89 mg/dL (65-100) 12/21/18 04:40 POC Glucose 105 (70-105) 12/20/18 21:37 Hemoglobin A1c 5.3 % (4-6) 12/20/18 04:57 Calcium 8.7 mg/dL (8.4-10.2) 12/21/18 04:40 Magnesium 2.10 mg/dL (1.7-2.3) 12/21/18 04:40 Triglycerides 124 mg/dL (2-149) 12/20/18 04:57 Cholesterol 161 mg/dL (50-199) 12/20/18 04:57 LDL Cholesterol Direct 92 mg/dL (50-130) 12/20/18 04:57 HDL Cholesterol 55 mg/dL (40-59) 12/20/18 04:57 Cholesterol/HDL Ratio 2.92 % 12/20/18 04:57 Active Medications - Current Medications Current Medications: Generic Name Dose Route Start Last Admin Trade Name Freq PRN Reason Stop Dose Admin Acetaminophen 650 mg 12/19/18 23:12 12/21/18 00:17 Tylenol PO 650 mg Q4H PRN Administration Pain, Mild (1-3) Aspirin 81 mg 12/20/18 10:00 12/20/18 10:57 Halfprin Ec PO 81 mg QDAY JULIA Administration Atorvastatin Calcium 40 mg 12/20/18 22:00 12/20/18 22:21 Lipitor PO 40 mg QHS JULIA Administration Bisacodyl 10 mg 12/19/18 23:12 Dulcolax [place] QDAY PRN Constipation Cephalexin 500 mg 12/20/18 14:00 12/20/18 22:22 Keflex PO 500 mg Q8H JULIA Administration Clopidogrel Bisulfate 75 mg 12/21/18 10:00 Plavix PO QDAY JULIA Dextrose 50 ml 12/20/18 00:40 D50w (25gm) Syringe IV PRN PRN Hypoglycemia Enoxaparin Sodium 40 mg 12/20/18 10:00 12/20/18 10:57 Lovenox SUB-Q 40 mg QDAY JULIA Administration Hydralazine HCl 10 mg 12/19/18 23:45 12/20/18 01:31 Apresoline IV 10 mg Q4H PRN Administration BP >160/100 Insulin Human Lispro 0 unit 12/20/18 07:30 12/20/18 22:19 Humalog SUB-Q Not Given ACHS [facility] Protocol Labetalol HCl 100 mg 12/20/18 10:00 12/20/18 22:22 Normodyne PO 100 mg BID JULIA Administration Magnesium Hydroxide 30 ml 12/19/18 23:12 Milk Of Magnesia PO Q4H PRN Constipation Metoclopramide HCl 10 mg 12/19/18 23:12 Reglan PO Q6H PRN Nausea And Vomiting Nifedipine 30 mg 12/20/18 08:00 12/20/18 10:57 Procardia Xl PO 30 mg QDAY@0800 JULIA Administration Olanzapine 5 mg 12/20/18 10:00 12/20/18 11:59 Zyprexa PO 5 mg QDAY JULIA Administration Ondansetron HCl 4 mg 12/19/18 23:12 Zofran IV Q8H PRN Nausea And Vomiting Promethazine HCl 25 mg 12/19/18 23:12 Phenergan [place] Q6H PRN Nausea And Vomiting Sodium Chloride 10 ml 12/19/18 23:12 Sodium Chloride Flush Syringe 10 Ml IV PRN PRN LINE FLUSH Nutrition/Malnutrition Assess - Dietary Evaluation Nutrition/Malnutrition Findings: Nutrition Notes Start: 12/20/18 11:48 Freq: Status: Active Protocol: Document 12/20/18 11:49 PS (Rec: 12/20/18 11:54 PS [id number]) Co-Sign 12/20/18 11:49 LM Nutrition Notes 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 was not in room during both visits. Follow up for pre -diabetes education and nutrition assessment. Pt. labs did not indicate DM. Nutrition Intervention Follow-Up By: 12/21/18 Additional Comments Follow up for nutrition assessment and pre-diabetes education
[2018-12-21] MEDS: INSULIN LISPRO 100 UNIT/ML SUB-Q SCH ×4 (08:00→23:30)
[2018-12-21] MEDS: POTASSIUM CHLORIDE ER 20 MEQ TAB PO SCH ×3 (12:00→17:02)
[2018-12-21] MEDS: ENOXAPARIN 40 MG/0.4 ML INJ SUB-Q SCH (12:08)
[2018-12-21] MEDS: ASPIRIN EC 81 MG TAB PO SCH (12:10)
[2018-12-21] MEDS: NIFEdipine XL 30 MG TAB PO SCH (12:10)
[2018-12-21] MEDS: CLOPIDOGREL 75 MG TAB PO SCH (12:10)
--- NOTE | 2018-12-21 12:13 | Progress Note ---
Assessment and Plan Patient is a 43-year-old woman with a history of stroke with residual right- sided weakness, hypertension, asthma, who presents with a two-week history of increased imbalance gait and dizziness. According patient's clinical findings, she's had an acute ischemic stroke in the left cerebellar hemisphere, as is noted on MRI. Plan: 1. Stroke: - MRI brain showed Lt. cerebellar acute/subacute infarcts - Etiology is cryptogenic - CTA neck: mild stenosis in left vertebral artery, otherwise no significant stenosis noted. - MRA head: No significant stenosis - Echo pending - Recommend dual antiplatelet therapy with both ASA 81mg daily and Plavix 75mg daily for 90 days, after which Plavix can be stopped. - LDL 92. - Cont. atorvastatin. Goal LDL <70. - HbA1C 5.3 - PT/OT/ST - DVT Ppx: recommend lovenox - If echo does not show any significant findings, will recommend long-term cardiac monitoring with either 30-day MCOT of ILR, which can be done as outpatient, as stroke appears to be cyrptogenic at this time. 2. Hypertension: - Recommend BP target of normotension, as it has been >48 hours since symptom onset. - Will continue to monitor neurologic status Thank you for allowing me to take part in the care of this patient. Aguilar Davidson MD Neurology Subjective Date of service: 12/21/18 Principal diagnosis: Stroke Interval history: No acute events overnight. Objective - Exam Narrative Exam: Patient is alert, awake, oriented 4, follows complex commands. Pupils equal, round, reactive to light, visual wiggins full, no facial weakness noted, bilaterally intact to light touch, tongue midline. 5/5 strength noted in all extremities. Bilaterally intact to light touch. 2+ reflexes throughout. Noted to have mild dysmetria on right upper and lower extremity on [id number] and [id number], no dysmetria noted on left upper and lower extremity. No dysarthria or aphasia noted. - Vital Sign Vital Signs - 12hr 12/21/18 12/21/18 12/21/18 00:17 04:00 04:01 Temperature 98.0 F Pulse Rate 81 Respiratory 18 18 Rate Blood Pressure 129/85 O2 Sat by Pulse 96 Oximetry 12/21/18 12/21/18 07:49 11:31 Temperature 98.5 F 98.5 F Pulse Rate 73 90 Respiratory 18 18 Rate Blood Pressure 149/82 127/78 O2 Sat by Pulse 99 97 Oximetry - General Apperance Constitutional: comfortable - EENT EENT: ATNC, PERRL, mucous membranes moist, hearing intact, vision intact - Respiratory Respiratory: lungs clear, normal breath sounds - Cardiovascular Cardiovascular: regular rate, normal S1, normal S2 Extremities: no clubbing, cyanosis, no inflammation - Gastrointestinal Gastrointestinal: normoactive bowel sounds, soft, non-tender - Integumentary Integumentary: normal - Musculoskeletal Musculoskeletal: no fluid collection, no pain - Psychiatric Psychiatric: mood/affect appropriate - Laboratory Findings CBC and BMP: 12/19/18 21:40 12/21/18 04:40 Abnormal Lab Findings: Abnormal Labs 12/19/18 12/20/18 12/20/18 21:40 12:06 17:17 Potassium 3.2 L Creatinine 0.6 L Glucose 118 H POC Glucose 130 H 120 H 12/21/18 04:40 Potassium 3.1 L Creatinine Glucose POC Glucose
[2018-12-21] MEDS ORDERED: POTASSIUM CHLORIDE ER 20 MEQ TAB PO SCH (17:00)
[2018-12-21] MEDS: cephALEXin 500 MG CAP PO SCH ×2 (17:00→23:30)
[2018-12-22] MEDS: ASPIRIN EC 81 MG TAB PO SCH (11:18)
[2018-12-22] MEDS: ENOXAPARIN 40 MG/0.4 ML INJ SUB-Q SCH (11:19)
[2018-12-22] MEDS: NIFEdipine XL 30 MG TAB PO SCH (11:19)
[2018-12-22] MEDS: CLOPIDOGREL 75 MG TAB PO SCH (11:19)
[2018-12-22 11:20] VITALS: BP 145/87
[2018-12-22] MEDS: INSULIN LISPRO 100 UNIT/ML SUB-Q SCH ×2 (11:35→14:43)
--- NOTE | 2018-12-22 15:30 | Progress Note ---
Assessment and Plan Patient is a 43-year-old woman with a history of stroke with residual right- sided weakness, hypertension, asthma, who presents with a two-week history of increased imbalance gait and dizziness. According patient's clinical findings, she's had an acute ischemic stroke in the left cerebellar hemisphere, as is noted on MRI. Plan: 1. Stroke: - MRI brain showed Lt. cerebellar acute/subacute infarcts - Etiology is cryptogenic - CTA neck: mild stenosis in left vertebral artery, otherwise no significant stenosis noted. - MRA head: No significant stenosis - Echo: EF 55-60%, LA normal size, bubble study negative. - Recommend dual antiplatelet therapy with both ASA 81mg daily and Plavix 75mg daily for 90 days, after which Plavix can be stopped. - LDL 92. - Cont. atorvastatin. Goal LDL <70. - HbA1C 5.3 - PT/OT/ST - DVT Ppx: recommend lovenox - As etiology of stroke is cryptogenic, and this is patient's second stroke, will recommend long-term cardiac monitoring with either 30-day MCOT of ILR, which can be done as outpatient. 2. Hypertension: - Recommend BP target of normotension, as it has been >48 hours since symptom onset. - Will sign off as I am not covering neurology service over the weekend. Recommend for neurologist who is covering weekend to be consulted for further neurologic monitoring/management. Thank you for allowing me to take part in the care of this patient. Aguilar Davidson MD Neurology Subjective Date of service: 12/22/18 Principal diagnosis: Stroke Interval history: No acute events overnight. Objective - Exam Narrative Exam: Patient is alert, awake, oriented 4, follows complex commands. Pupils equal, round, reactive to light, visual wiggins full, no facial weakness noted, bilaterally intact to light touch, tongue midline. 5/5 strength noted in all extremities. Bilaterally intact to light touch. 2+ reflexes throughout. Noted to have mild dysmetria on right upper and lower extremity on [id number] and [id number], no dysmetria noted on left upper and lower extremity. No dysarthria or aphasia noted. - Vital Sign Vital Signs - 12hr 12/22/18 12/22/18 12/22/18 04:04 08:03 09:09 Temperature 98.0 F Pulse Rate 78 82 80 Respiratory 18 16 Rate Blood Pressure 113/70 141/76 O2 Sat by Pulse 97 97 Oximetry 12/22/18 12/22/18 11:18 12:00 Temperature Pulse Rate 75 84 Respiratory Rate Blood Pressure 145/87 O2 Sat by Pulse Oximetry - General Apperance Constitutional: comfortable - EENT EENT: ATNC, PERRL, mucous membranes moist, hearing intact, vision intact - Respiratory Respiratory: lungs clear, normal breath sounds - Cardiovascular Cardiovascular: regular rate, normal S1, normal S2 Extremities: no clubbing, cyanosis, no inflammation - Gastrointestinal Gastrointestinal: normoactive bowel sounds, soft, non-tender - Integumentary Integumentary: normal - Musculoskeletal Musculoskeletal: no fluid collection, no pain - Psychiatric Psychiatric: mood/affect appropriate - Laboratory Findings CBC and BMP: 12/19/18 21:40 12/22/18 03:36 Abnormal Lab Findings: Abnormal Labs 12/19/18 12/20/18 12/20/18 21:40 12:06 17:17 Potassium 3.2 L Creatinine 0.6 L Glucose 118 H POC Glucose 130 H 120 H 12/21/18 04:40 Potassium 3.1 L Creatinine Glucose POC Glucose
[2018-12-22] MEDS: cephALEXin 500 MG CAP PO SCH ×2 (16:11→16:14)
--- NOTE | 2018-12-22 16:43 | Discharge Summary ---
Providers - Providers Date of Admission: 12/21/18 15:34 Date of discharge: 12/22/18 Attending physician: REGINO HERNANDEZ 12/19/18 Consult to Physician [CONS] Routine Comment: Consulting Provider: ARYA ASCENCIO Physician Instructions: Reason For Exam: dizziness, ataxia, history of CVA 12/19/18 23:13 Occupational Therapy Evaluate and Treat [CONS] Routine Comment: Reason For Exam: Neuro deficits Physical Therapy Evaluation and Treat [CONS] Routine Comment: Reason For Exam: Neuro deficits Primary care physician: [facility] Hospitalization Reason for admission: right sided weakness, unsteady gait Condition: Fair Pertinent studies: Neuro workup.: MRI; 3 or 4 small foci of subacute ischemia along the margin of the previous chronic infarct multiple chronic infarcts noted CT head without contrast; left peripheral cerebellar encephalomalacia consistent with ischemic injury MRA.; No acute abnormality Carotid Doppler; no hemodynamically significant stenosis Less than 50% stenosis; neck; atherosclerotic plaque in the right carotid bifurcation No hemodynamically significant stenosis Abnormal thyroid gland/mass ECHO : EF 55-60%, no shunt Hospital course: 43-year-old -[place] female patient's significant history of CVA in 2018 hypertension asthma and diabetes mellitus was admitted through emergency room with dizziness ataxia of 2 weeks' duration patient was noncompliant with medications patient had right-sided weakness, not a candidate for TPA, patient had extensive cardiac workup, evaluated by neurology Patient to see physical therapy occupational therapy and rehabilitation Today patient is comfortable, hemodynamically stable Discharge diagnosis: --Acute Cerebellar stroke: Aspirin and statin, PT and OT rehabilitation Neurology following --Hypokalemia; replace per protocol and monitor levels --Hypertensive urgency; Closely monitor blood pressures Permissivet hypertension per stroke protocol --Type 2 diabetes mellitus; Accu-Chek sliding scale coverage and ADA diet --Dyslipidemia; statin --Small abscess in the left axilla; Keflex and supportive care Surgical consult if needed --DVT prophylaxis and Lovenox Physical therapy and occupational therapy rehabilitation Stable at discharge Disposition: DC-01 TO HOME OR SELFCARE Time spent for discharge: 32 min Core Measure Documentation - Palliative Care Palliative Care/ Comfort Measures: Not Applicable - Core Measures Any of the following diagnoses?: stroke - Stroke Discharge Requirements Statin for LDL = or >70 mg/dl on DC: Yes Anticoag for atrial fib/atrial flutter: Not Applicable Antithrombotic for ischemic stroke: Yes Exam - Constitutional Vitals: Temp Pulse Resp BP Pulse Ox 98.0 F 84 16 145/87 97 12/22/18 04:04 12/22/18 12:00 12/22/18 08:03 12/22/18 11:18 12/22/18 08:03 General appearance: Present: no acute distress, well-nourished - EENT Eyes: Present: PERRL, EOM intact - Neck Neck: Present: supple, normal ROM - Respiratory Respiratory effort: normal Respiratory: bilateral: diminished, negative: rales, rhonchi, wheezing - Cardiovascular Rhythm: regular Heart Sounds: Present: S1 & S2 - Extremities Extremities: no ischemia, No edema - Abdominal General gastrointestinal: Present: soft, non-tender, non-distended, normal bowel sounds - Integumentary Integumentary: Present: clear, warm - Musculoskeletal Musculoskeletal: strength equal bilaterally - Psychiatric Psychiatric: appropriate mood/affect, cooperative - Neurologic Neurologic: moves all extremities Plan Activity: advance as tolerated, fall precautions Diet: other (cardiac diet) Additional Instructions: Advised to follow private neurologist in 1-2 weeks Follow up with: PRIMARY CARE, [Primary Care Provider] - 7 Days PATI KIM MD [Staff Physician] - 7 Days Prescriptions: Aspirin EC [Halfprin EC] 81 mg PO QDAY #30 tablet cephALEXin [Keflex] 500 mg PO Q8H #15 capsule Labetalol [Labetalol 100mg TAB] 100 mg PO BID #60 AtorvaSTATin [Lipitor] 40 mg PO QHS #30 tablet Clopidogrel [Plavix] 75 mg PO QDAY #30 tablet NIFEdipine XL [Procardia Xl] 30 mg PO QDAY@0800 #30 tablet
== END 2018-12-22 17:56 | disposition home or self-care (01) | DRG 65 ==
LOC: ED 19:45 → INTOOBSV 23:13 → 4A 23:13 → OBSVTOIN 12-21 15:34
PROVIDERS: ADMIT Internal Medicine; ATTEND Internal Medicine
DX: I63.9 Cerebral infarction, unspecified (principal); L02.412 Cutaneous abscess of left axilla; I69.351 Hemiplegia and hemiparesis following cerebral infarction affecting right dominant side; I16.0 Hypertensive urgency; I10 Essential (primary) hypertension; E11.9 Type 2 diabetes mellitus without complications; J45.909 Unspecified asthma, uncomplicated; E87.6 Hypokalemia; Z79.899 Other long term (current) drug therapy; Z79.84 Long term (current) use of oral hypoglycemic drugs
CPT/HCPCS: 36415; 70450; 70498; 70544; 70551; 80048; 80061; 82962; 83036; 83735; 84132; 85025; 90686; 93306; 93880; 96374; G0378; A9270-GY; J0360; J1650; Q9967